=== PATIENT | male | born 1970 | race African-American/Black ===

== ENCOUNTER → 2017-12-25 | Day surgery (SDC) | payer BC ==
[~2017-12-25] MED LIST: Bupivacaine 0.25% 30 ML SDV ONE; HYDROmorphone 0.5 MG/0.5 ML Syringe ONE; Lactated Ringers 1,000 ML IV SCH; Lactated Ringers 1,000 ML ONE; Lidocaine 1% 4 ML ONE; Lidocaine 1%/Sod Bicarbonate in NS 8.4% 1 ML Syringe IDERM PRN; Midazolam 1 MG/ML 2 ML SDV ONE; Ondansetron 4 MG/2 ML SDV ONE; Propofol 200 MG/20 ML SDV ONE; Ropivacaine 0.5% 5 MG/ML 30 ML SDV ONE; Sodium Chloride 0.9% 10 ML Syringe FLUSH PRN; ceFAZolin 1 GM Vial ONE; fentaNYL 100 MCG/2 ML SDV IVPUSH PRN; fentaNYL 250 MCG/5 ML SDV ONE
--- NOTE | 2017-12-25 09:03 | PCM.PREANE ---
Preanesthetic Assessment - Anesthesia/Transfusion/Family Hx Anesthesia History: Prior Anesthesia Without Reaction Family History of Anesthesia Reaction: No Transfusion History: No Prior Transfusion(s) - Review of Systems General: No Symptoms Pulmonary: No Symptoms Cardiovascular: No Symptoms Gastrointestinal: No Symptoms Neurological: No Symptoms Other: Reports: None - Physical Assessment NPO Status Date: 12/24/17 NPO Status Time: 00:00 Pulse: 82 O2 Sat by Pulse Oximetry: 97 Respiratory Rate: 16 Blood Pressure: 148/92 Temperature: 36.4 C Height: 1.96 m Weight: 148.778 kg ASA Class: 2 Mental Status: Alert & Oriented x3 Airway Class: Mallampati = 1 Dentition: Reports: Normal Dentition, Partial Thyro-Mental Finger Breadths: 3 Mouth Opening Finger Breadths: 3 ROM/Head Extension: Full Lungs: Clear to Auscultation, Normal Respiratory Effort Cardiovascular: Regular Rate, Regular Rhythm, No Murmurs - Allergies Allergies/Adverse Reactions: Allergies Allergy/AdvReac Type Severity Reaction Status Date / Time No Known Allergies Allergy Verified 12/24/17 15:01 - Blood Blood Available: No Product(s) Available: None - Anesthesia Plan Pre-Op Medication Ordered: None - Acknowledgements Anesthesia Type Planned: General Anesthesia Pt an Appropriate Candidate for the Planned Anesthesia: Yes Alternatives and Risks of Anesthesia Discussed w Pt/Guardian: Yes Pt/Guardian Understands and Agrees with Anesthesia Plan: Yes PreAnesthesia Questionnaire HEENT History: Reports: Impaired Vision, Retinal Detachment Other HEENT History: wears glasses, has retainer Cardiovascular History: Reports: None Respiratory History: Reports: None Gastrointestinal History: Reports: None Genitourinary History: Reports: None 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: Reports: None Musculoskeletal History: Reports: None Neurological History: Reports: None Psychiatric History: Reports: None Endocrine/Metabolic History: Reports: None Hematologic History: Reports: None Immunologic History: Reports: None Oncologic (Cancer) History: Reports: None Dermatologic History: Reports: None - Infectious Disease History Infectious Disease History: Reports: Chicken Pox - Past Surgical History Head Surgeries/Procedures: Reports: None HEENT Surgical History: Reports: Detached Retina, Eye Surgery, Other (See Below) Other HEENT Surgeries/Procedures: Right eye retina surgery and "metal plate put in bottom jaw" Cardiovascular Surgical History: Reports: None Respiratory Surgical History: Reports: None GI Surgical History: Reports: Appendectomy Female Surgical History: Reports: None Male Surgical History: Reports: None Endocrine Surgical History: Reports: None Neurological Surgical History: Reports: None Musculoskeletal Surgical History: Reports: None Oncologic Surgical History: Reports: None Dermatological Surgical History: Reports: None - SUBSTANCE USE Smoking Status *Q: Never Smoker Tobacco Use Within Last Twelve Months: No Second Hand Smoke Exposure: No Days Per Week of Alcohol Use: 0 Number of Drinks Per Day: 0 Total Drinks Per Week: 0 Recreational Drug Use History: No - HOME MEDS Home Medications: Home Meds . [No Known Home Meds] 12/07/17 [History] - CURRENT (IN HOUSE) MEDS Current Meds: Current Medications Lactated Ringer's (Ringers, Lactated) 1,000 mls @ 125 mls/hr IV ASDIRECTED SAM Stop: 12/25/17 23:00 Lidocaine/Sodium Bicarbonate (Buffered Lidocaine 1% In Ns 8.4%) 0.25 ml IDERM ONETIME PRN PRN Reason: Prior to IV Start Stop: 12/25/17 18:00 Sodium Chloride (Saline Flush) 10 ml FLUSH ASDIRECTED PRN PRN Reason: Keep Vein Open Stop: 12/25/17 18:00 Discontinued Medications Cefazolin Sodium (Ancef) Confirm Administered Dose 2 gm .ROUTE .STK-MED ONE Stop: 12/25/17 08:39 Fentanyl (Sublimaze) Confirm Administered Dose 250 mcg .ROUTE .STK-MED ONE Stop: 12/25/17 08:39 Lidocaine HCl (Xylocaine-Mpf 1%) Confirm Administered Dose 4 mls @ as directed .ROUTE .STK-MED ONE Stop: 12/25/17 08:39 Midazolam HCl (Versed 1 Mg/Ml) Confirm Administered Dose 2 mg .ROUTE .STK-MED ONE Stop: 12/25/17 08:39 Ondansetron HCl (Zofran) Confirm Administered Dose 4 mg .ROUTE .STK-MED ONE Stop: 12/25/17 08:38 Propofol (Diprivan 20 Ml) Confirm Administered Dose 200 mg .ROUTE .STK-MED ONE Stop: 12/25/17 08:39
--- NOTE | 2017-12-25 12:41 | PCM.POSTAN ---
POST ANESTHESIA ASSESSMENT - MENTAL STATUS Mental Status: Somnolent - VITAL SIGNS Pulse Rate: 85 SaO2: 97 Resp Rate: 13 Blood Pressure: 176/110 Temperature: 37.2 C - RESPIRATORY Respiratory Status: Respiratory Rate WNL, Airway Patent, O2 Saturation Stable, Supplemental Oxygen - CARDIOVASCULAR CV Status: Pulse Rate WNL, Blood Pressure Stable - GASTROINTESTINAL GI Status: No Symptoms - PAIN Pain Score: 0 - POST OP HYDRATION Hydration Status: Adequate & Stable - OBSERVATIONS Free Text/Narrative:: no anesthesia complications noted
--- NOTE | 2017-12-25 12:44 | CR ---
Left knee: Four fluoroscopic spot views were obtained utilizing the C-arm of the left knee centered to the patella. Comparison: Previous MRI left knee study of 12/15/17. Findings: Study shows surgical change for tendon repair of previous noted distal quadriceps tendon tear. Fluoroscopy time given as 28.6 seconds. Impression: 1. Operative study. Diagnostic code #2
[2017-12-25] MEDS: Labetalol 100 MG/20 ML MDV IVPUSH PRN ×2 (13:30→13:40)
--- NOTE | 2017-12-25 15:53 | PCM48HPAN ---
Post Anesthesia Note - EVALUATION WITHIN 48HRS OF ANESTHETIC Vital Signs in Normal Range: Yes Patient Participated in Evaluation: Yes Respiratory Function Stable: Yes Airway Patent: Yes Cardiovascular Function Stable: Yes (BP stable) Hydration Status Stable: Yes Pain Control Satisfactory: Yes Nausea and Vomiting Control Satisfactory: Yes Mental Status Recovered: Yes - COMMENTS/OBSERVATIONS Free Text/Narrative:: no anesthesia complications noted
--- NOTE | 2017-12-25 15:58 | PCM.SN ---
- Free Text/Narrative Note: Right selective femoral nerve block at the adductor canal for post-procedure pain control under US guidance requested by Dr. Parra. Time Out: 1309 Start: 1309 End: 1320 Chart reviewed. Consent signed. Questions answered. Appropriate monitors applied. Time out performed. Right mid-shaft femur identified with ultrasound, scanning medially of femur, the femoral artery in the adductor canal visualized , and the femoral nerve located laterally to the artery. The skin was prepped lateral to the ultrasound probe with chlorahexadine. The 21ga 4 insulated block needle was inserted under direct ultrasound guidance into the adductor canal. 25mL of 0.5% ropivacaine with 1:200,000 epinephrine was injected circumferentially around the nerve with intermittent negative aspiration noted. Patient tolerated the procedure well. See pictures on progress note and vital signs on nurses notes. Block completed in PACU. Cr Farooq CRNA
--- NOTE | 2017-12-29 17:37 | PCM.OPNOTE ---
- General Post-Op/Procedure Note Date of Surgery/Procedure: 12/25/17 Operative Procedure(s): left quadriceps tendon repair Pre Op Diagnosis: left quadriceps tendon rupture Post-Op Diagnosis: Same Anesthesia Technique: General LMA, Local Primary Surgeon: Lenny Parra Anesthesia Provider: Cr Farooq [employer] Design Architect: Zahida Orellana EBL in mLs: 10 Complications: None Condition: Good
--- NOTE | 2017-12-31 13:35 | OR ---
DATE OF OPERATION: 12/25/2017 SURGEON: Lenny Parra MD OPERATION PERFORMED: Left quadriceps tendon repair. PREOPERATIVE DIAGNOSIS: Left quadriceps tendon rupture. POSTOPERATIVE DIAGNOSIS: Left quadriceps tendon rupture. ANESTHESIA: General LMA with local. ANESTHESIA PROVIDER: Cr Farooq CRNA. BED MANAGER: Zahida Orellana LPN. ESTIMATED BLOOD LOSS: 10 mL. COMPLICATIONS: None. CONDITION: Stable. DESCRIPTION OF PROCEDURE: The patient was identified in the preoperative holding area. Proper site was marked and identified by the surgeon. The patient was taken back to the operative theater, where after adequate anesthesia, the patient's left lower extremity had a nonsterile tourniquet applied and was then sterilely prepped and draped in the usual sterile fashion. OR-wide time-out was performed. The patient received 2 grams of IV Ancef. The left lower extremity was exsanguinated. Tourniquet was insufflated to 300 mmHg. Standard anterior incision was made, centered over the patella. This was taken down to Juany's fascia. Juany's fascia was incised. The quadriceps tendon rupture was then identified with no significant retraction noted. At this time, fracture hematoma was irrigated out of the knee. The ends of the tendon were then debrided as well as on the patella to make sure there was a good bony surface for primary healing. At this time, a #5 FiberWire was whip-stitched with a modified Krackow stitch through the quadriceps tendon on both the medial and lateral sides. The tail ends were then out of the distal end of the quadriceps tendon. Two 0.62 K-wires were then placed in a retrograde fashion from proximal to distal through the patellar tendon. A small rent in the patellar tendon was then made for both the K-wires. A Hewson suture passer was then placed from proximal to distal and an 0 Vicryl was then used to shuttle the FiberWire from the superior pole through the patella to the inferior pole. C-arm fluoroscopy was utilized to make sure that the K-wires were colinear. This was then again done with the medial side with a #5 suture, being shuttled through the patella with the use of a Hewson suture passer and 0 Vicryl suture. At this time, once we were in inferior border of the patellae, I did bring them through just one side, tightened them, and then we tightened and tied this down. The knot was then buried in the patellar tendon. It was noted to have good approximation on the patella. At this time, the medial retinaculum as well as over-sewing of the quadriceps tendon over the top of the patella was done. I did leave part of the lateral retinaculum open to make sure that it was not overtightened. There was good primary repair with no gapping noted of the quadriceps tendon. At this time, adequate saline was irrigated through the wound. 2-0 Vicryl pop-offs were used subcutaneously and Prineo was used for the skin. Sterile soft dressing was applied. The patient was sent to PACU in a stable condition. MATT /[id number]
== END | disposition home or self-care (01) ==
LOC: JD.SDS 08:30
PROVIDERS: ATTEND Orthopaedic Surgery
DX: S76.112A Strain of left quadriceps muscle, fascia and tendon, initial encounter (principal); W00.0XXA Fall on same level due to ice and snow, initial encounter
CPT/HCPCS: 27385; 64450; 76000; J0690; J1170; J2250; J2405; J2795; J3010; J7120; 01250; J2704; J3490

== ENCOUNTER 2019-11-22 17:23 | Emergency (ER) | payer BC, OTHER ==
[2019-11-22] MEDS ORDERED: Orphenadrine 100 MG Tab.ER PO STA (19:45)
--- NOTE | 2019-11-22 19:58 | EDM.PDOC ---
ED HPI GENERAL MEDICAL PROBLEM - General Chief Complaint: General Stated Complaint: MYGRAIN/THROAT SWELLING Time Seen by Provider: 11/22/19 19:10 Source of Information: Reports: Patient, Family () History Limitations: Reports: No Limitations - History of Present Illness INITIAL COMMENTS - FREE TEXT/NARRATIVE: Mr. Jo is a very pleasant 49-year-old man with a past medical history significant for obesity, dyslipidemia, and hypothyroidism, who states that he developed a headache around 03:30 this morning. He states that the headache is felt on the top of his head and across his forehead. He describes the sensation as a pressure and steady. He reports photophobia, although he appears to be comfortable in the lit ED exam room. No phonophobia. No visual changes, such as blurry vision, wavy lines, or flashes of light. No nausea or vomiting. No neurologic symptoms, such as tingling, numbness, or weakness. He took some Excedrin Migraine around 10:00, then went to work without eating breakfast. Around 11:15, he developed the sensation of some tightness in his throat, and he noticed that his eyes were bothering him. He went home for lunch , and his pointed out around 11:45 that he had some facial swelling, particularly around the eyes. He drank 5 to 6 mL of children's Benadryl around 13:00. When his symptoms did not improve, he went to the [facility] around 15: 45. He states that no treatment was given, but he was directed to the walk-in clinic, where he went around to 16:30. Again, no treatment was given, and he was directed here. No prior similar facial swelling, although the patient has had a similar headache in the past. No lip swelling. No dyspnea or wheezing. No gastrointestinal symptoms, such as dyspepsia, nausea, vomiting, abdominal cramps , or diarrhea. No urticaria or pruritus. Here in the ED, the patient's initial BP is found to be elevated, but he is otherwise hemodynamically stable, afebrile, with a normal oxygen saturation on room air. The patient's PCP is at the [facility]. He did not receive an influenza vaccine this season, and declined an offer to receive one here today. Headache Pain Score (Numeric/FACES): 6 - Related Data Allergies Allergy/AdvReac Type Severity Reaction Status Date / Time No Known Allergies Allergy Verified 11/22/19 17:42 Home Meds: Home Meds Cholecalciferol (Vitamin D3) [Vitamin D3] 7,000 unit PO DAILY 11/22/19 [History] EPINEPHrine [Epinephrine] 1 injection IM ASDIRECTED PRN #1 kit 11/22/19 [Rx] Levothyroxine Sodium 88 mcg PO ACBREAKFAST 11/22/19 [History] Orphenadrine [Norflex] 1 tab PO Q12H PRN #14 tab.er 11/22/19 [Rx] atorvaSTATin Calcium [Atorvastatin Calcium] 10 mg PO BEDTIME 11/22/19 [History] Past Medical History HEENT History: Reports: Impaired Vision, Retinal Detachment Other HEENT History: wears glasses, has retainer Cardiovascular History: Reports: High Cholesterol Endocrine/Metabolic History: Reports: Hypothyroidism, Obesity/BMI 30+ - Infectious Disease History Infectious Disease History: Reports: Chicken Pox - Past Surgical History HEENT Surgical History: Reports: Detached Retina, Other (See Below) (mandible ORIF) GI Surgical History: Reports: Appendectomy, Hernia, Abdominal (periumbilical) Musculoskeletal Surgical History: Reports: Other (See Below) (Left quadriceps tendon repair) Social & Family History - Family History Family Medical History: Noncontributory - Tobacco Use Smoking Status *Q: Never Smoker - Caffeine Use Caffeine Use: Reports: Tea - Alcohol Use Alcohol Use History: Yes Alcohol Use Frequency: Socially - Recreational Drug Use Recreational Drug Use: No - Living Situation & Occupation Living situation: Reports: , with Spouse, with Family (4 kids) 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 ED EXAM, GENERAL - Physical Exam Exam: See Below Exam Limited By: No Limitations General Appearance: Alert, WD/WN, No Apparent Distress Eye Exam: Bilateral Eye: EOMI, Normal Inspection Ears: Normal External Exam, Normal Canal, Hearing Grossly Normal, Normal TMs Nose: Normal Inspection, Normal Mucosa, No Blood Throat/Mouth: Normal Inspection, Normal Lips (no swelling), Normal Teeth, Normal Gums, Normal Oropharynx (no oropharyngeal or uvular swelling), Normal Voice, No Airway Compromise Head: Atraumatic, Facial Swelling (particularly around the eyes) Neck: Normal Inspection, Supple, Non-Tender, Full Range of Motion. No: Lymphadenopathy (L), Lymphadenopathy (R) Respiratory/Chest: No Respiratory Distress, Lungs Clear, Normal Breath Sounds, No Accessory Muscle Use. No: Decreased Breath Sounds, Crackles, Rhonchi, Wheezing, Stridor, Prolonged Expiration Cardiovascular: Normal Peripheral Pulses, Regular Rate, Rhythm, No Gallop, No JVD, No Murmur, No Rub Peripheral Pulses: 4+: Radial (L), Radial (R) GI/Abdominal: Normal Bowel Sounds, Soft, Non-Tender, No Organomegaly, No Distention, No Abnormal Bruit, No Mass (Male) Exam: Deferred Rectal (Males) Exam: Deferred Back Exam: Normal Inspection, Full Range of Motion, NT Extremities: Normal Inspection, Normal Range of Motion, Normal Capillary Refill , Other (2-3+ pretibial pitting edema bilaterally. Patient reports is chronic.) Neurological: Alert, Oriented, Normal Cognition, No Motor/Sensory Deficits Psychiatric: Normal Affect Skin Exam: Warm, Dry, Intact, Normal Color, No Rash Course - Vital Signs Last Recorded V/S: Last Vital Signs Temp 36.8 C 11/22/19 17:37 Pulse 80 11/22/19 20:23 Resp 16 11/22/19 20:23 BP 158/108 H 11/22/19 20:23 Pulse Ox 98 11/22/19 20:23 - Orders/Labs/Meds Meds: Medications Discontinued Medications Generic Name Dose Route Start Last Admin Trade Name Freq PRN Reason Stop Dose Admin Orphenadrine Citrate 100 mg 11/22/19 19:45 11/22/19 19:57 Norflex PO 11/22/19 19:46 100 mg ONETIME STA Administration - Re-Assessments/Exams Free Text/Narrative Re-Assessment/Exam: 11/22/19 19:46 The patient has 2 issues: 1. A relatively mild allergic reaction as evidenced by mild facial angioedema with no other symptoms. 2. A headache that is most likely a tension-type headache, less likely a migraine. Since the patient did not eat any breakfast before he developed this reaction, his reaction is most likely due to one of the ingredients in the Excedrin Migraine that he took around 10 AM. Excedrin Migraine includes acetaminophen, aspirin, and caffeine. Of those, aspirin is the most likely candidate. Current guidelines recommend treatment with a nonsedating antihistamine, such as cetirzine (Zyrtec), levocetirzine (Xyzal), or desloratadine (Clarinex) twice a day. All are available [id number], but, unfortunately, we do not carry any of them here. The patient will have to purchase one at the grocery store. I will prescribe for him an EpiPen kit, and refer him to an Claims Representative. In the meantime, the patient should not only avoid Excedrin Migraine, but also aspirin , ibuprofen, naproxen, and even acetaminophen, until such time as his Claims Representative determines exactly what he is allergic to. Current guidelines do not recommend steroids or epinephrine at this time. With respect to his headache, it is possible that he is suffering from a migraine, but his symptoms are more consistent with a tension type headache. Additionally, while he says that he was prescribed some sort of a headache medication in the past, he states that Excedrin Migraine has always worked better than the prescription medicines. I offered to treat the patient with a dose of Haldol to see if that improves his headache, but he would prefer to just move forward with a muscle relaxant. He will be started on Norflex, and I will prescribe some additional. Unfortunately, we would normally pair Norflex with ibuprofen, but because of his possible allergy to NSAIDs, we cannot in this case. The patient expressed understanding. The patient requested a note to return to work tomorrow. Departure - Departure Time of Disposition: 19:58 Disposition: Home, Self-Care 01 Condition: Good Clinical Impression: Angioedema, Tension headache - Discharge Information *PRESCRIPTION DRUG MONITORING PROGRAM REVIEWED*: Not Applicable *COPY OF PRESCRIPTION DRUG MONITORING REPORT IN PATIENT LORENA: Not Applicable Prescriptions: EPINEPHrine [Epinephrine] 1 injection IM ASDIRECTED PRN #1 kit PRN Reason: Shortness Of Breath Orphenadrine [Norflex] 1 tab PO Q12H PRN #14 tab.er PRN Reason: Headache Instructions: Angioedema, [id number], Tension Headache, Adult, [id number] Referrals: [facility] [Outside] Mikaela Field MD [Ordering Only Provider] - Forms: ED Department Discharge, ED Return to Work/School Form Additional Instructions: You were seen in the emergency room for a headache and for facial swelling. Based on your history and physical exam, your headache is most likely a tension- type headache. You have been started on the muscle relaxant Norflex, and a prescription for Norflex has been [facility] to [facility], located in the [facility] across the [address] from the hospital. Take 1 tablet of Norflex every 12 hours, starting tomorrow morning, 11/23/2019, as prescribed. Based on your history and physical exam, your facial swelling is most likely facial angioedema, due to a relatively mild allergic reaction. While we cannot be certain, it is most likely that you are allergic to 1 of the ingredients and Excedrin Migraine - either acetaminophen (Tylenol), aspirin, or caffeine. Until the exact cause of your allergic reaction has been determined, we recommend that you avoid Excedrin Migraine, as well as acetaminophen/Tylenol, and all NSAIDs, including aspirin, ibuprofen (Advil, Motrin), naproxen (Aleve), and all prescription NSAIDs. As discussed, we recommend that you purchase a nonsedating antihistamine, such as cetirzine (Zyrtec), levocetirzine (Xyzal), or desloratadine (Clarinex), and take 1 pill twice a day until your facial swelling has completely resolved. Follow-up with the Claims Representative Dr. Mikaela Field, if permitted by the [facility], or an Claims Representative that they assign, at the next available appointment, in order to determine exactly what it is that you are allergic to. A prescription for an epinephrine auto-injection kit has also been sent to the [facility]. If you develop an allergic reaction that includes wheezing, difficulty breathing, or generalized itchy hives, inject 1 injection into your anterolateral thigh, as directed. You must then immediately go to the nearest ER. You may repeat 1 injection after 15 minutes, if necessary. If any other problems, please do not hesitate to return to the ER Sepsis Event Note - Evaluation Sepsis Screening Result: No Definite Risk - Focused Exam Date Exam was Performed: 11/23/19 Time Exam was Performed: 10:59
== END 2019-11-22 20:20 | disposition home or self-care (01) ==
LOC: JD.ED 17:23
DX: G44.209 Tension-type headache, unspecified, not intractable (principal); T78.3XXA Angioneurotic edema, initial encounter; E66.9 Obesity, unspecified; E78.5 Hyperlipidemia, unspecified; E03.9 Hypothyroidism, unspecified; Z79.899 Other long term (current) drug therapy; Z68.41 Body mass index [BMI] 40.0-44.9, adult
CPT/HCPCS: 99283; A9270; 99284

== ENCOUNTER 2020-05-01 21:12 | Emergency (ER) | payer OTHER ==
[2020-05-01] MEDS ORDERED: Rivaroxaban 15 MG Tab PO ONE (21:38)
--- NOTE | 2020-05-01 21:47 | EDM.PDOC ---
ED HPI GENERAL MEDICAL PROBLEM - General Chief Complaint: Upper Extremity Injury/Pain Stated Complaint: BLOOD CLOTS IN ARMS Time Seen by Provider: 05/01/20 21:21 Source of Information: Reports: Patient, RN Notes Reviewed History Limitations: Reports: No Limitations - History of Present Illness INITIAL COMMENTS - FREE TEXT/NARRATIVE: Patient is a 49-year-old male who presents to the ED for the evaluation of his bilateral upper extremity blood clots. Patient notes that he had a rotator cuff surgery and bicep repair on April [address] Abarca at [facility] in [place]. He states that he had a re-check at the clinic by Dr. Olvera, and was complaining of some upper arm tenderness, so they ordered a venous Doppler and this demonstrated acute thrombus within the right brachial, basilic, and antecubital veins. Superficial thrombus within the left cephalic vein. The visualized internal jugular, subclavian, and axillary veins are patent bilaterally. Patient notes he is a patient from the [facility] as well, so he opted to talk with his providers at the [facility], before coming to the ER like Dr. Olvera recommended for management, and they stated that it was okay for him to come to the ER. Patient denies any shortness of breath, he is not tachycardic at the initial time of triage. He denies any other sick-like symptoms, fever/chills, cough. Right Arm Pain Score (Numeric/FACES): 4 - Related Data Allergies Allergy/AdvReac Type Severity Reaction Status Date / Time pollen Allergy Itching Uncoded 03/17/20 09:32 Home Meds: Home Meds Levothyroxine Sodium 88 mcg PO ACBREAKFAST 11/22/19 [History] atorvaSTATin Calcium [Atorvastatin Calcium] 10 mg PO BEDTIME 11/22/19 [History] Celecoxib [CeleBREX] 50 mg PO DAILY PRN 05/01/20 [History] Magnesium Oxide 400 mg PO DAILY 05/01/20 [History] Metoprolol Succinate 50 mg PO DAILY 05/01/20 [History] Rivaroxaban [Xarelto] 15 mg PO DAILY 21 Days #42 tab 05/01/20 [Rx] amLODIPine [Norvasc] 5 mg PO DAILY 05/01/20 [History] Past Medical History HEENT History: Reports: Impaired Vision, Retinal Detachment Other HEENT History: wears glasses, has retainer Cardiovascular History: Reports: High Cholesterol Respiratory History: Reports: None Gastrointestinal History: Reports: None Genitourinary History: Reports: None SERVICE 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: Reports: None Musculoskeletal History: Reports: None Neurological History: Reports: None Psychiatric History: Reports: None Endocrine/Metabolic History: Reports: Hypothyroidism, Obesity/BMI 30+ Hematologic History: Reports: None Immunologic History: Reports: None Oncologic (Cancer) History: Reports: None Dermatologic History: Reports: None - Infectious Disease History Infectious Disease History: Reports: Chicken Pox - Past Surgical History Head Surgeries/Procedures: Reports: None HEENT Surgical History: Reports: Detached Retina, Other (See Below) Respiratory Surgical History: Reports: None GI Surgical History: Reports: Appendectomy, Hernia, Abdominal Male Surgical History: Reports: None Neurological Surgical History: Reports: None Musculoskeletal Surgical History: Reports: Other (See Below) Other Musculoskeletal Surgeries/Procedures:: right rotator cuff repair and right bicep repair Oncologic Surgical History: Reports: None Dermatological Surgical History: Reports: None Social & Family History - Family History Family Medical History: Noncontributory - Tobacco Use Smoking Status *Q: Never Smoker Second Hand Smoke Exposure: No - Caffeine Use Caffeine Use: Reports: Tea - Recreational Drug Use Recreational Drug Use: No - Living Situation & Occupation Living situation: Reports: , with Spouse, with Family (4 kids) 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 ED EXAM, GENERAL - Physical Exam Exam: See Below Exam Limited By: No Limitations General Appearance: Alert, WD/WN, No Apparent Distress Respiratory/Chest: No Respiratory Distress, Lungs Clear, Normal Breath Sounds, No Accessory Muscle Use, Chest Non-Tender Cardiovascular: Normal Peripheral Pulses, Regular Rate, Rhythm, No Edema, No Murmur Peripheral Pulses: 2+: Radial (L), Radial (R) Extremities: Normal Inspection, Normal Capillary Refill, Other (Bilateral arm tenderness, on the medial aspects of each arm. There is a tender cord lesion noted to both areas.like). No: Talia's Sign Neurological: Alert, Oriented, Normal Cognition, No Motor/Sensory Deficits Psychiatric: Normal Affect, Normal Mood Skin Exam: Warm, Dry, Intact, Normal Color, No Rash Course - Vital Signs Last Recorded V/S: Last Vital Signs Temp 96.6 F L 05/01/20 21:21 Pulse 63 05/01/20 21:21 Resp 16 05/01/20 21:21 BP 131/65 05/01/20 21:21 Pulse Ox 96 05/01/20 21:21 - Orders/Labs/Meds Meds: Medications Discontinued Medications Generic Name Dose Route Start Last Admin Trade Name Ricarda PRN Reason Stop Dose Admin Rivaroxaban 15 mg 05/01/20 21:38 Xarelto PO 05/01/20 21:39 ONETIME ONE - Re-Assessments/Exams Free Text/Narrative Re-Assessment/Exam: 05/01/20 21:45 Patient presents to the ED via recommendation of Dr. Altamirano for his bilateral upper extremity blood clots. Unfortunately management states that we should just start him on blood thinners, this is something Dr. Altamirano provided. Nonetheless he will be started on Xarelto for management of this today. And the rest will be sent to [facility], [facility] when he gets to the 20 mg portion of the Xarelto program. He does take Celebrex as needed, I will caution him to use this with any sort of NSAIDs, or the Celebrex and try to get him to utilize Tylenol for pain or otherwise. Departure - Departure Time of Disposition: 21:47 Disposition: Home, Self-Care 01 Condition: Good Clinical Impression: DVT of upper extremity (deep vein thrombosis) Qualifiers: Affected thrombotic vein of extremity: brachial Chronicity: acute Laterality: right Qualified Code(s): I82.621 - Acute embolism and thrombosis of deep veins of right upper extremity Superficial venous thrombosis of arm Qualifiers: Laterality: left Qualified Code(s): I82.612 - Acute embolism and thrombosis of superficial veins of left upper extremity - Discharge Information *PRESCRIPTION DRUG MONITORING PROGRAM REVIEWED*: No *COPY OF PRESCRIPTION DRUG MONITORING REPORT IN PATIENT LORENA: No Prescriptions: Rivaroxaban [Xarelto] 15 mg PO DAILY 21 Days #42 tab Instructions: Bleeding Precautions When on Anticoagulant Therapy, Adult Referrals: Stephany Pemberton [employer] [Primary Care Provider] - Additional Instructions: You were evaluated in the ER today regarding your bilateral arm blood clots. Management for this is to start you on a blood thinner, blood thinner of choice is Xarelto, you will be started on 15 mg tablets, you will need to take 1 tablet 2 times a day for the next 21 days. Your first dose was given in the ER for management. After the 21 days is completed, you will need a switch to 20 mg tablets once daily, this can be provided to you by your primary care provider at the [facility] clinic. The prescription for the medication has been sent to the [facility] pharmacy located in the [facility], you will need to go there tomorrow to pick this up and start taking as directed. These medications do not work well in combination with medications like Celebrex or NSAIDs like ibuprofen (Motrin/Advil) for Aleve (naproxen) as they can cause internal bleeding. If you are having pain we recommend that you try to stick to Tylenol for further pain management. Do not exceed 4000 mg Tylenol in a 24-hour time span. You may apply warm packs to the affected areas to try to help also relieve pain. Please do not hesitate to return to the ER at any time if your symptoms change or worsen. Sepsis Event Note (ED) - Evaluation Sepsis Screening Result: No Definite Risk - Focused Exam Vital Signs: Vital Signs Temp Pulse Resp BP Pulse Ox 05/01/20 21:21 96.6 F L 63 16 131/65 96
== END 2020-05-01 22:01 | disposition home or self-care (01) ==
LOC: JD.ED 21:12
DX: I82.621 Acute embolism and thrombosis of deep veins of right upper extremity (principal); I82.612 Acute embolism and thrombosis of superficial veins of left upper extremity; E78.00 Pure hypercholesterolemia, unspecified; E03.9 Hypothyroidism, unspecified; E66.9 Obesity, unspecified; Z68.41 Body mass index [BMI] 40.0-44.9, adult; Z91.048 Other nonmedicinal substance allergy status
CPT/HCPCS: 99283; A9270

== ENCOUNTER 2020-05-04 09:11 | Emergency (ER) | payer OTHER ==
--- NOTE | 2020-05-04 10:13 | EDM.PDOC ---
ED HPI GENERAL MEDICAL PROBLEM - General Chief Complaint: Cardiovascular Problem Stated Complaint: POSS BLOODCLOTS Time Seen by Provider: 05/04/20 09:25 Source of Information: Reports: Patient, Family () History Limitations: Reports: No Limitations - History of Present Illness INITIAL COMMENTS - FREE TEXT/NARRATIVE: Mr. Jo is a very pleasant 49-year-old gentleman who underwent a right shoulder arthroscopy on 04/13/2020. He followed up with his Orthopedic Surgeon's nurse on 04/25/2020, complaining at that time of right arm pain, but he was reassured that everything appeared to be normal. He then saw a different orthopedic surgeon, in preparation for left carpal tunnel release, on 05/01/2020, and at that time, he expressed his concerns about arm pain. He was sent for outpatient Dopplers of both upper extremities, finding bilateral DVTs. He was then instructed to come to this ED for evaluation. Once here, he was started on Xarelto, and discharged home with a 21-day prescription. The patient now returns to the ED stating that he discovered an uncomfortable small lump to his upper left cheek, between the underside of his left eye and his nose, this morning, when he woke up. No recent trauma to his face. He states that he thought it was a pimple, but his didn't think so. He called the [facility] clinic, and was instructed to come to the ED for evaluation. Here in the ED, the patient is found to be hemodynamically stable, afebrile, saturating 97% on room air. Other than his postoperative right upper extremity discomfort, the patient denies recent fever, chills, sore throat, ear pain, nasal or sinus congestion, cough, dyspnea, chest pain, palpitations, nausea, vomiting, constipation, diarrhea, abdominal pain, urinary symptoms, recent weight gain or weight loss, recent bloody bowel movements or black bowel movements, recent joint aches, headaches, or rashes. The patient's PCP is Stephany Pemberton NP, at the [facility] in [place]. His shoulder Orthopedic Surgeon is Dr. Ed Abarca. His carpal tunnel Orthopedic Surgeon is Dr. Elio Olvera. Right Arm Pain Score (Numeric/FACES): 2 - Related Data Allergies Allergy/AdvReac Type Severity Reaction Status Date / Time pollen Allergy Itching Uncoded 05/04/20 09:23 surgical glue Allergy Rash Uncoded 05/04/20 09:24 Home Meds: Home Meds Levothyroxine Sodium 88 mcg PO ACBREAKFAST 11/22/19 [History] atorvaSTATin Calcium [Atorvastatin Calcium] 10 mg PO BEDTIME 11/22/19 [History] Celecoxib [CeleBREX] 200 mg PO DAILY PRN 05/01/20 [History] Magnesium Oxide 400 mg PO BID 05/01/20 [History] Metoprolol Succinate 50 mg PO DAILY 05/01/20 [History] amLODIPine [Norvasc] 5 mg PO DAILY 05/01/20 [History] Loratadine 10 mg PO DAILY 05/04/20 [History] Olopatadine [Patanol 0.1% Ophth Soln] 1 drop EYEBOTH BID 05/04/20 [History] Rivaroxaban [Xarelto] 15 mg PO BID 05/04/20 [History] SUMAtriptan succinate [Imitrex] 50 mg PO ASDIRECTED PRN 05/04/20 [History] metFORMIN [Glucophage] 500 mg PO DAILY 05/04/20 [History] Past Medical History HEENT History: Reports: Impaired Vision (wears glasses), Retinal Detachment Cardiovascular History: Reports: High Cholesterol, Hypertension Neurological History: Reports: Migraines Endocrine/Metabolic History: Reports: Hypothyroidism, Obesity/BMI 30+ - Infectious Disease History Infectious Disease History: Reports: Chicken Pox - Past Surgical History HEENT Surgical History: Reports: Detached Retina, Other (See Below) (Mandible ORIF) GI Surgical History: Reports: Appendectomy, Hernia, Abdominal (periumbilical) Musculoskeletal Surgical History: Reports: Shoulder Surgery (right, arthroscopic, 04/13/2020), Other (See Below) (Left quadriceps tendon repair) Social & Family History - Family History Family Medical History: Noncontributory - Tobacco Use Smoking Status *Q: Never Smoker Second Hand Smoke Exposure: No - Caffeine Use Caffeine Use: Reports: Tea - Alcohol Use Alcohol Use History: Yes Alcohol Use Frequency: Socially - Recreational Drug Use Recreational Drug Use: No - Living Situation & Occupation Living situation: Reports: , with Spouse, with Family (4 kids) 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 ED EXAM, GENERAL - Physical Exam Exam: See Below Exam Limited By: No Limitations General Appearance: Alert, WD/WN, No Apparent Distress Eye Exam: Bilateral Eye: EOMI, Normal Inspection Ears: Normal External Exam, Hearing Grossly Normal Nose: Normal Inspection, Normal Mucosa, No Blood Throat/Mouth: Normal Inspection, Normal Lips, Normal Voice, No Airway Compromise Head: Normocephalic, Other (Small palpable, although not visible, lump felt under the skin to the upper left cheek, between the underside of the left eya and the nose. Mildly tender.) Course - Vital Signs Last Recorded V/S: Last Vital Signs Temp 36.1 C 05/04/20 09:15 Pulse 80 05/04/20 09:15 Resp 18 05/04/20 09:15 BP 133/71 05/04/20 09:15 Pulse Ox 97 05/04/20 09:15 - Re-Assessments/Exams Free Text/Narrative Re-Assessment/Exam: 05/04/20 10:07 On examination, the mildly tender lump that the patient discovered on his upper left cheek, between his lower eyelid and nose, that he thought was a pimple, is, in fact, a pimple. It has nothing to do with him being on Xarelto. I am recommending warm compresses. Departure - Departure Time of Disposition: 10:08 Disposition: Home, Self-Care 01 Condition: Good Clinical Impression: Skin pimple Instructions: Acne, [id number] Referrals: Stephany Pemberton NP [Primary Care Provider] - Ed Abarca MD [Physician] - Elio Olvera Sr, MD [Physician] - Forms: ED Department Discharge Additional Instructions: You were seen in the emergency room after discovering a mildly tender lump between the underside of your left eye and your nose, this morning. On examination, the lump appears to be a pimple, that has not yet risen to the surface. We recommend that you keep the area clean with ordinary soap and water, and apply warm compresses to it. You may continue to take your usual medicines as prescribed. If any other problems, please do not hesitate to return to the ER Sepsis Event Note (ED) - Evaluation Sepsis Screening Result: No Definite Risk - Focused Exam Vital Signs: Vital Signs Temp Pulse Resp BP Pulse Ox 05/04/20 09:15 36.1 C 80 18 133/71 97
== END 2020-05-04 10:20 | disposition home or self-care (01) ==
LOC: JD.ED 09:11
DX: R23.8 Other skin changes (principal); E78.00 Pure hypercholesterolemia, unspecified; I10 Essential (primary) hypertension; E03.9 Hypothyroidism, unspecified; E66.9 Obesity, unspecified; Z79.899 Other long term (current) drug therapy; Z91.048 Other nonmedicinal substance allergy status; Z79.01 Long term (current) use of anticoagulants; Z68.41 Body mass index [BMI] 40.0-44.9, adult
CPT/HCPCS: 99282; 99283